=== PATIENT | male | born 1985 | race African-American/Black ===

== ENCOUNTER 2022-12-28 15:04 | Emergency (ER) | payer OTHER ==
[2022-12-28 15:25] VITALS: BP 114/77; PULSE 75; RESP 15; TEMP 98.5; BMI 29.1
[2022-12-28] MEDS ORDERED: ACETAMINOPHEN 500 MG TABLET (FP) PO ONE (17:20)
[2022-12-28] MEDS ORDERED: ACETAMINOPHEN 500 MG TABLET (FP) ONE (17:24)
== END 2022-12-28 19:43 | disposition home or self-care (01) ==
LOC: FER 15:04
DX: S06.0X0A Concussion without loss of consciousness, initial encounter (principal); R51.9 Headache, unspecified; H53.71 Glare sensitivity; M54.2 Cervicalgia; W22.8XXA Striking against or struck by other objects, initial encounter
CPT/HCPCS: 70450-TC; 72125-TC; 99284-25